=== PATIENT | female | born 1960 | race Caucasian/White ===

== ENCOUNTER 2018-03-09 13:42 | Inpatient (IN) | payer MEDICAID ==
[~2018-03-09] VITALS: Ht 152.4 cm; Wt 103.0 kg
[~2018-03-09 13:42] MED LIST: CIPR500T87 PO; DULO20CA45 PO; GABA800T PO; OXYC5TAB3 PO; POTA20TA14 PO
[2018-03-09] MEDS ORDERED: AMPICILLIN/SULBACTAM 1,500 MG in SODIUM CHLORIDE 0.9% 50 ML IV ONE (14:58)
[2018-03-09] MEDS ORDERED: ERYTHROMYCIN OPHTH 0.5%, 1GM RIGHTEYE ONE (15:00)
[2018-03-09 15:20] LABS: BASOPHILS # (AUTO) 0.02 x10^3/uL (0-0.1); BASOPHILS % (AUTO) 0 % (0-1); EOSINOPHILS # (AUTO) 0.14 x10^3/uL (0-0.4); EOSINOPHILS % (AUTO) 2 % (1-7); LYMPHOCYTES # (AUTO) 2.03 x10^3/uL (1-3.4); LYMPHOCYTES % (AUTO) 26 % (22-44); MD NO; MEAN CORPUSCULAR HEMOGLOBIN 29.9 pg (27.0-34.8); MEAN CORPUSCULAR VOLUME 88.2 fL (80-100); MEAN PLATELET VOLUME 7.5 fL (7.4-10.4); MONOCYTES # (AUTO) 0.71 x10^3/uL (0.2-0.8); MONOCYTES % (AUTO) 9 % (2-9); NEUTROPHILS # (AUTO) 4.84 x10^3/uL (1.8-6.8); NEUTROPHILS % (AUTO) 63 % (42-75); PLATELET COUNT 338 x10^3/uL (130-400); RED BLOOD COUNT 5.11 x10^6/uL (3.82-5.3); RED CELL DISTRIBUTION WIDTH 12.9 % (9.6-15.2)
[2018-03-09] MEDS ORDERED: HYDR25CA PO (15:27)
[2018-03-09] MEDS ORDERED: METO-93 PO (15:27)
[2018-03-09 15:34] LABS: ALBUMIN 3.8 g/dL (3.4-5.0); ANION GAP 5 mmol/L (5-15); CHLORIDE 105 mmol/L (98-107); CREATININE 0.66 mg/dL (0.55-1.02)
[2018-03-09] MEDS ORDERED: HYDROcodone/APAP 5/325 TABLET ONE (16:34)
[2018-03-09] MEDS ORDERED: HYDROcodone/APAP 5/325 TABLET PO ONE (17:00)
[2018-03-09 18:00] VITALS: BP 102/56
[2018-03-09] MEDS ORDERED: ONDANSETRON ODT 4 MG PO PRN (18:00)
[2018-03-09] MEDS ORDERED: hydrALAzine 20 MG/ML, 1ML IVPush PRN (18:00)
[2018-03-09] MEDS ORDERED: morphine SULFATE 10 MG/ML, 1ML IVPush PRN (18:00)
[2018-03-09] MEDS ORDERED: PROMETHAZINE 25 MG/ML, 1ML IM PRN (18:00)
[2018-03-09] MEDS ORDERED: GABAPENTIN 400 MG CAPSULE PO SCH (18:00)
[2018-03-09] MEDS ORDERED: ONDANSETRON 2MG/ML, 2ML IVPush PRN (18:00)
[2018-03-09] MEDS ORDERED: POLYETHYLENE GLYCOL 17 GM PACKET PO PRN (18:00)
[2018-03-09] MEDS ORDERED: ACETAMINOPHEN 325 MG TABLET PO PRN (18:00)
[2018-03-09 18:06] LABS: FREE T4 (FREE THYROXINE) 0.79 ng/dL (0.76-1.46); THYROID STIMULATING HORMONE 1.29 mIU/L (0.358-3.740)
[2018-03-09 18:11] LABS: HEMOGLOBIN A1C 5.7 % (4.2-6.3)
[2018-03-09 19:02] VITALS: BP 113/76
[2018-03-09 19:32] LABS: CULTURE INDICATED? YES; MICROSCOPIC INDICATED
[2018-03-09] MEDS ORDERED: HYDROXYZINE PAMOATE 50MG CAP PO SCH (21:00)
[2018-03-09] MEDS: AMPICILLIN/SULBACTAM 3 GM in SODIUM CHLORIDE 0.9% 100 ML IV SCH (21:05)
[2018-03-09] MEDS: DULOXETINE 30 MG CAPSULE.DR PO SCH (21:18)
[2018-03-09] MEDS: GABAPENTIN 400 MG CAPSULE PO SCH (21:18)
[2018-03-09] MEDS: METOPROLOL SUCCINATE 50 MG TAB.ER.24H PO SCH (21:18)
[2018-03-09] MEDS: HYDROXYZINE PAMOATE 25MG CAP PO SCH (21:22)
[2018-03-10 01:26] VITALS: BP 101/61
[2018-03-10] MEDS: AMPICILLIN/SULBACTAM 3 GM in SODIUM CHLORIDE 0.9% 100 ML IV SCH ×4 (02:53→21:23)
[2018-03-10 05:26] LABS: BASOPHILS # (AUTO) 0.04 x10^3/uL (0-0.1); BASOPHILS % (AUTO) 1 % (0-1); EOSINOPHILS # (AUTO) 0.23 x10^3/uL (0-0.4); EOSINOPHILS % (AUTO) 3 % (1-7); LYMPHOCYTES # (AUTO) 2.36 x10^3/uL (1-3.4); LYMPHOCYTES % (AUTO) 31 % (22-44); MD NO; MEAN CORPUSCULAR HEMOGLOBIN 29.8 pg (27.0-34.8); MEAN CORPUSCULAR HGB CONC 33.6 g/dL (32.4-35.8); MEAN CORPUSCULAR VOLUME 88.7 fL (80-100); MEAN PLATELET VOLUME 7.6 fL (7.4-10.4); MONOCYTES # (AUTO) 0.88 x10^3/uL (0.2-0.8); MONOCYTES % (AUTO) 12 % (2-9); NEUTROPHILS % (AUTO) 54 % (42-75); PLATELET COUNT 228 x10^3/uL (130-400); RED CELL DISTRIBUTION WIDTH 12.7 % (9.6-15.2)
[2018-03-10 05:42] LABS: ALBUMIN 3.3 g/dL (3.4-5.0); ANION GAP 7 mmol/L (5-15); CALCIUM 8.7 mg/dL (8.5-10.1); CHLORIDE 106 mmol/L (98-107)
[2018-03-10 05:46] LABS: ALANINE AMINOTRANSFERASE 23 U/L (12-78); ALKALINE PHOSPHATASE 77 U/L (45-117); BILIRUBIN,TOTAL 0.8 mg/dL (0.2-1.0); CHOL/HDL RATIO 5.6; CHOLESTEROL, TOTAL 192 mg/dL (140-239); CREATININE 0.65 mg/dL (0.55-1.02); HDL CHOL % 18 % (28-40); HDL CHOLESTEROL (DIRECT) 34 mg/dL (40-60); LDL CHOLESTEROL,CALCULATED 106 mg/dL (54-169); LDL/HDL RATIO 3.1 (0.5-3.0); TOTAL PROTEIN 6.5 g/dL (6.4-8.2); TRIGLYCERIDES 261 mg/dL (50-200); VLDL CHOLESTEROL 52 mg/dL (0-25)
[2018-03-10 07:01] VITALS: BP 107/65
[2018-03-10] MEDS ORDERED: METOPROLOL SUCCINATE 50 MG TAB.ER.24H PO SCH (09:00)
[2018-03-10] MEDS ORDERED: DULOXETINE 30 MG CAPSULE.DR PO SCH (09:00)
[2018-03-10] MEDS ORDERED: HYDROXYZINE PAMOATE 25MG CAP PO SCH (09:00)
[2018-03-10] MEDS ORDERED: OMNIPAQUE 350 MG/ML, 100ML BOTTLE ONE (12:57)
[2018-03-10] MEDS ORDERED: PHARMACOKINETIC CONSULTATION MC ONE (13:00)
[2018-03-10] MEDS ORDERED: VANCOMYCIN PER PHARMACY MC PRN (13:00)
[2018-03-10] MEDS ORDERED: PHARMACOKINETIC MONITORING MC PRN (13:00)
[2018-03-10] MEDS: VANCOMYCIN 1,800 MG in SODIUM CHLORIDE 0.9% 250 ML IV SCH (13:16)
[2018-03-10 14:45] VITALS: BP 124/67
[2018-03-10 18:59] VITALS: BP 107/65
[2018-03-10] MEDS: GABAPENTIN 400 MG CAPSULE PO SCH (20:13)
[2018-03-10] MEDS: DULOXETINE 30 MG CAPSULE.DR PO SCH (20:13)
[2018-03-10] MEDS: METOPROLOL SUCCINATE 50 MG TAB.ER.24H PO SCH (20:13)
[2018-03-10] MEDS: HYDROXYZINE PAMOATE 25MG CAP PO SCH (20:14)
[2018-03-10] MEDS: NEO/POLYMYX B/DEXA OPHTH OINT, 3.5GM OP SCH (22:06)
[2018-03-11] MEDS: AMPICILLIN/SULBACTAM 3 GM in SODIUM CHLORIDE 0.9% 100 ML IV SCH ×4 (03:05→22:26)
[2018-03-11 03:09] VITALS: BP 92/60
[2018-03-11 05:14] LABS: BASOPHILS # (AUTO) 0.03 x10^3/uL (0-0.1); BASOPHILS % (AUTO) 1 % (0-1); EOSINOPHILS # (AUTO) 0.17 x10^3/uL (0-0.4); EOSINOPHILS % (AUTO) 3 % (1-7); LYMPHOCYTES % (AUTO) 28 % (22-44); MD NO; MEAN CORPUSCULAR HEMOGLOBIN 30.3 pg (27.0-34.8); MEAN CORPUSCULAR VOLUME 89.1 fL (80-100); MEAN PLATELET VOLUME 7.8 fL (7.4-10.4); MONOCYTES # (AUTO) 0.65 x10^3/uL (0.2-0.8); MONOCYTES % (AUTO) 9 % (2-9); NEUTROPHILS # (AUTO) 4.12 x10^3/uL (1.8-6.8); NEUTROPHILS % (AUTO) 60 % (42-75); PLATELET COUNT 263 x10^3/uL (130-400); RED BLOOD COUNT 4.68 x10^6/uL (3.82-5.3); RED CELL DISTRIBUTION WIDTH 12.7 % (9.6-15.2)
[2018-03-11 05:15] LABS: CHLORIDE 107 mmol/L (98-107)
[2018-03-11 05:20] LABS: ALBUMIN 3.2 g/dL (3.4-5.0); ANION GAP 8 mmol/L (5-15); CALCIUM 8.3 mg/dL (8.5-10.1); CREATININE 0.79 mg/dL (0.55-1.02)
[2018-03-11] MEDS: NEO/POLYMYX B/DEXA OPHTH OINT, 3.5GM OP SCH ×4 (05:20→20:51)
[2018-03-11] MEDS: VANCOMYCIN 1,800 MG in SODIUM CHLORIDE 0.9% 250 ML IV SCH (08:06)
[2018-03-11 08:18] VITALS: BP 118/65
[2018-03-11] MEDS: OXYcodone/APAP 5/325MG TABLET PO PRN ×2 (10:17→17:26)
[2018-03-11 12:27] VITALS: BP 111/73
[2018-03-11 18:36] VITALS: BP 120/77
[2018-03-11] MEDS: METOPROLOL SUCCINATE 50 MG TAB.ER.24H PO SCH (20:51)
[2018-03-11] MEDS: GABAPENTIN 400 MG CAPSULE PO SCH (20:51)
[2018-03-11] MEDS: HYDROXYZINE PAMOATE 25MG CAP PO SCH (20:52)
[2018-03-11] MEDS: DULOXETINE 30 MG CAPSULE.DR PO SCH (20:52)
[2018-03-12] MEDS: VANCOMYCIN 1,800 MG in SODIUM CHLORIDE 0.9% 250 ML IV SCH ×2 (00:43→19:22)
[2018-03-12 01:32] VITALS: BP 112/64
[2018-03-12] MEDS: AMPICILLIN/SULBACTAM 3 GM in SODIUM CHLORIDE 0.9% 100 ML IV SCH ×4 (04:30→22:26)
[2018-03-12 05:28] LABS: ANION GAP 5 mmol/L (5-15); CALCIUM 8.5 mg/dL (8.5-10.1); CHLORIDE 110 mmol/L (98-107); CREATININE 0.55 mg/dL (0.55-1.02)
[2018-03-12 05:28] LABS: BASOPHILS # (AUTO) 0.03 x10^3/uL (0-0.1); BASOPHILS % (AUTO) 1 % (0-1); EOSINOPHILS % (AUTO) 4 % (1-7); LYMPHOCYTES # (AUTO) 1.86 x10^3/uL (1-3.4); LYMPHOCYTES % (AUTO) 33 % (22-44); MD NO; MEAN CORPUSCULAR HEMOGLOBIN 30.5 pg (27.0-34.8); MEAN CORPUSCULAR HGB CONC 34.5 g/dL (32.4-35.8); MEAN CORPUSCULAR VOLUME 88.4 fL (80-100); MEAN PLATELET VOLUME 7.9 fL (7.4-10.4); MONOCYTES # (AUTO) 0.57 x10^3/uL (0.2-0.8); MONOCYTES % (AUTO) 10 % (2-9); NEUTROPHILS % (AUTO) 53 % (42-75); PLATELET COUNT 228 x10^3/uL (130-400); RED BLOOD COUNT 4.13 x10^6/uL (3.82-5.3); RED CELL DISTRIBUTION WIDTH 12.6 % (9.6-15.2)
[2018-03-12] MEDS: NEO/POLYMYX B/DEXA OPHTH OINT, 3.5GM OP SCH ×4 (06:11→20:30)
[2018-03-12 06:38] VITALS: BP 121/68
[2018-03-12 14:00] VITALS: BP 121/68
[2018-03-12 17:23] VITALS: BP 120/77
[2018-03-12 18:43] VITALS: BP 124/73
[2018-03-12] MEDS: GABAPENTIN 400 MG CAPSULE PO SCH (20:29)
[2018-03-12] MEDS: METOPROLOL SUCCINATE 50 MG TAB.ER.24H PO SCH (20:29)
[2018-03-12] MEDS: HYDROXYZINE PAMOATE 25MG CAP PO SCH (20:29)
[2018-03-12] MEDS: DULOXETINE 30 MG CAPSULE.DR PO SCH (20:29)
[2018-03-12] MEDS: HEPARIN 5,000 UNITS/ML, 1ML SQ SCH (20:29)
[2018-03-13 00:09] VITALS: BP 113/68
[2018-03-13] MEDS: AMPICILLIN/SULBACTAM 3 GM in SODIUM CHLORIDE 0.9% 100 ML IV SCH ×4 (04:36→22:45)
[2018-03-13] MEDS: HEPARIN 5,000 UNITS/ML, 1ML SQ SCH ×3 (04:37→20:02)
[2018-03-13 06:11] LABS: ALBUMIN 3.1 g/dL (3.4-5.0); ANION GAP 6 mmol/L (5-15); CALCIUM 8.3 mg/dL (8.5-10.1); CHLORIDE 108 mmol/L (98-107); CREATININE 0.67 mg/dL (0.55-1.02)
[2018-03-13] MEDS: NEO/POLYMYX B/DEXA OPHTH OINT, 3.5GM OP SCH ×4 (06:21→20:02)
[2018-03-13] MEDS ORDERED: POTASSIUM CHLORIDE 20 MEQ TAB.ER.PRT PO ONE (07:00)
[2018-03-13 07:36] VITALS: BP 115/74
[2018-03-13 12:21] VITALS: BP 109/74
[2018-03-13] MEDS: VANCOMYCIN 1,800 MG in SODIUM CHLORIDE 0.9% 250 ML IV SCH (13:02)
[2018-03-13 19:55] VITALS: BP 120/68
[2018-03-13] MEDS: HYDROXYZINE PAMOATE 25MG CAP PO SCH (20:02)
[2018-03-13] MEDS: DULOXETINE 30 MG CAPSULE.DR PO SCH (20:02)
[2018-03-13] MEDS: METOPROLOL SUCCINATE 50 MG TAB.ER.24H PO SCH (20:02)
[2018-03-13] MEDS: GABAPENTIN 400 MG CAPSULE PO SCH (20:03)
[2018-03-14] MEDS: CEPHALEXIN 500 MG CAPSULE PO SCH ×2 (00:04→08:43)
[2018-03-14 03:24] VITALS: BP 112/62
[2018-03-14] MEDS ORDERED: VANCOMYCIN 2,000 MG in SODIUM CHLORIDE 0.9% 500 ML IV ONE (06:00)
[2018-03-14] MEDS: HEPARIN 5,000 UNITS/ML, 1ML SQ SCH ×2 (06:10→14:00)
[2018-03-14] MEDS: NEO/POLYMYX B/DEXA OPHTH OINT, 3.5GM OP SCH ×2 (06:11→12:04)
[2018-03-14 07:10] LABS: BASOPHILS # (AUTO) 0.02 x10^3/uL (0-0.1); BASOPHILS % (AUTO) 0 % (0-1); EOSINOPHILS # (AUTO) 0.15 x10^3/uL (0-0.4); EOSINOPHILS % (AUTO) 3 % (1-7); LYMPHOCYTES # (AUTO) 1.84 x10^3/uL (1-3.4); LYMPHOCYTES % (AUTO) 36 % (22-44); MD NO; MEAN CORPUSCULAR HEMOGLOBIN 29.6 pg (27.0-34.8); MEAN CORPUSCULAR HGB CONC 33.4 g/dL (32.4-35.8); MEAN CORPUSCULAR VOLUME 88.7 fL (80-100); MEAN PLATELET VOLUME 7.7 fL (7.4-10.4); MONOCYTES # (AUTO) 0.54 x10^3/uL (0.2-0.8); MONOCYTES % (AUTO) 11 % (2-9); NEUTROPHILS # (AUTO) 2.54 x10^3/uL (1.8-6.8); NEUTROPHILS % (AUTO) 50 % (42-75); PLATELET COUNT 241 x10^3/uL (130-400); RED BLOOD COUNT 4.27 x10^6/uL (3.82-5.3); RED CELL DISTRIBUTION WIDTH 12.9 % (9.6-15.2)
[2018-03-14 07:14] VITALS: BP 132/84
[2018-03-14 07:22] LABS: ANION GAP 4 mmol/L (5-15); CALCIUM 8.6 mg/dL (8.5-10.1); CHLORIDE 110 mmol/L (98-107)
[2018-03-14 07:23] LABS: CREATININE 0.68 mg/dL (0.55-1.02)
[2018-03-14] MEDS ORDERED: DOXYCYCLINE 100MG TABLET PO SCH (09:00)
[2018-03-14] MEDS ORDERED: CEPH-376 PO (10:59)
[2018-03-14] MEDS ORDERED: NEO/3.5O7 OP (10:59)
[2018-03-14] MEDS ORDERED: DOXY100T PO (10:59)
== END 2018-03-14 15:11 | disposition home or self-care (01) | DRG 603 ==
LOC: ED 15:06 → EDIP 16:48 → INTOOBSV 17:36 → OBSVTOIN 17:36 → 3NE 17:46
PROVIDERS: ADMIT Internal Medicine; ATTEND Internal Medicine
DX: L03.213 Periorbital cellulitis (principal); N39.0 Urinary tract infection, site not specified; R78.81 Bacteremia; E66.9 Obesity, unspecified; E78.1 Pure hyperglyceridemia; G57.90 Unspecified mononeuropathy of unspecified lower limb; I10 Essential (primary) hypertension; I73.9 Peripheral vascular disease, unspecified; J45.909 Unspecified asthma, uncomplicated; Z80.1 Family history of malignant neoplasm of trachea, bronchus and lung; Z90.49 Acquired absence of other specified parts of digestive tract
CPT/HCPCS: 36415; 70481; 80048; 80053; 80061; 80202; 81001; 82040; 83036; 83605; 83735; 84439; 84443; 85025; 87040; 87077; 87086; 87186; 93306; 96365; 96366; J0295; J1644; J3370; Q9967; G0378; J7050

== ENCOUNTER 2018-03-16 11:23 | Emergency (ER) | payer MEDICAID ==
[~2018-03-16] VITALS: Ht 152.4 cm; Wt 103.9 kg
[~2018-03-16 11:23] MED LIST changes: +CEPH-376 PO; +DOXY100T PO; +HYDR25CA PO; +METO-93 PO; +NEO/3.5O7 OP
[2018-03-16 11:29] VITALS: BP 135/85
== END 2018-03-16 12:45 | disposition home or self-care (01) ==
LOC: ED 12:00
DX: K21.0 Gastro-esophageal reflux disease with esophagitis (principal); I10 Essential (primary) hypertension; Z90.49 Acquired absence of other specified parts of digestive tract
CPT/HCPCS: 99283

== ENCOUNTER 2018-04-19 12:18 | Emergency (ER) | payer MEDICAID ==
[~2018-04-19] VITALS: Ht 152.4 cm; Wt 101.0 kg
[2018-04-19 12:33] VITALS: BP 123/71
[2018-04-19] MEDS ORDERED: CIPROFLOXACIN/HYDROCORTISONE EAR SUSP 0.2-1%, 10ML RIGHT EAR ONE (14:00)
== END 2018-04-19 14:17 | disposition home or self-care (01) ==
LOC: ED 14:11
DX: H60.501 Unspecified acute noninfective otitis externa, right ear (principal); K21.9 Gastro-esophageal reflux disease without esophagitis; G89.29 Other chronic pain; I10 Essential (primary) hypertension; J45.909 Unspecified asthma, uncomplicated; G62.9 Polyneuropathy, unspecified
CPT/HCPCS: 99283

== ENCOUNTER 2018-06-26 22:28 | Emergency (ER) | payer MEDICAID ==
[~2018-06-26] VITALS: Ht 152.4 cm; Wt 103.0 kg
[2018-06-26] MEDS ORDERED: DULO60CA7 PO (22:52)
[2018-06-26] MEDS ORDERED: ALBUTEROL/IPRATROPIUM 2.5MG/0.5MG, 3 ML NPPB ONE (23:00)
[2018-06-26] MEDS ORDERED: ALBUTEROL/IPRATROPIUM 2.5MG/0.5MG, 3 ML ONE ×2 (23:04→23:12)
[2018-06-26] MEDS ORDERED: FAMOTIDINE 20 MG TABLET ONE (23:51)
[2018-06-27 00:03] VITALS: BP 120/64
== END 2018-06-27 00:25 | disposition home or self-care (01) ==
LOC: ED 23:34
DX: J45.31 Mild persistent asthma with (acute) exacerbation (principal)
CPT/HCPCS: 71045; 94640; 99284; J7512; J7620; 99283

== ENCOUNTER 2018-10-22 12:55 | Emergency (ER) | payer MEDICAID ==
[~2018-10-22] VITALS: Ht 152.4 cm; Wt 100.0 kg
[~2018-10-22 12:55] MED LIST changes: +DULO60CA7 PO
[2018-10-22 12:59] VITALS: BP 160/87
[2018-10-22 13:57] LABS: BASOPHILS # (AUTO) 0.02 x10^3/uL (0-0.1); BASOPHILS % (AUTO) 0 % (0-1); EOSINOPHILS # (AUTO) 0.15 x10^3/uL (0-0.4); EOSINOPHILS % (AUTO) 2 % (1-7); LYMPHOCYTES # (AUTO) 1.49 x10^3/uL (1-3.4); LYMPHOCYTES % (AUTO) 21 % (22-44); MD NO; MEAN CORPUSCULAR HEMOGLOBIN 30.7 pg (27.0-34.8); MEAN CORPUSCULAR HGB CONC 33.9 g/dL (32.4-35.8); MEAN CORPUSCULAR VOLUME 90.5 fL (80-100); MEAN PLATELET VOLUME 7.3 fL (7.4-10.4); MONOCYTES # (AUTO) 0.55 x10^3/uL (0.2-0.8); MONOCYTES % (AUTO) 8 % (2-9); NEUTROPHILS # (AUTO) 4.93 x10^3/uL (1.8-6.8); NEUTROPHILS % (AUTO) 69 % (42-75); PLATELET COUNT 358 x10^3/uL (130-400); RED BLOOD COUNT 4.59 x10^6/uL (3.82-5.3); RED CELL DISTRIBUTION WIDTH 13.2 % (9.6-15.2)
[2018-10-22 14:04] LABS: ALBUMIN 3.5 g/dL (3.4-5.0); ANION GAP 6 mmol/L (5-15); CALCIUM 9.6 mg/dL (8.5-10.1); CHLORIDE 103 mmol/L (98-107); CREATININE 0.69 mg/dL (0.55-1.02)
[2018-10-22] MEDS ORDERED: BACITRACIN ZINC OINT 500U/GM, 0.9 GM ONE (14:16)
[2018-10-22] MEDS ORDERED: LIDOCAINE-MPF 1%, 5ML ONE (14:16)
--- NOTE | 2018-10-22 14:18 | NUR ---
ABNER CALLEJAS AT BEDSIDE PERFORMING I&D.
[2018-10-22] MEDS ORDERED: LIDOCAINE-MPF 1%, 5ML INFIL ONE (14:30)
[2018-10-22] MEDS ORDERED: DIPH,PERTUSS(ACELL),TET VAC/PF 0.5 ML IM-VACC ONE (15:00)
--- NOTE | 2018-10-22 15:17 | NUR ---
Patient/Caregiver given discharge instructions and they have confirmed that they understand the instructions. Patient ambulatory with steady gait.
== END 2018-10-22 15:18 | disposition home or self-care (01) ==
LOC: ED 15:00
DX: L03.031 Cellulitis of right toe (principal); I10 Essential (primary) hypertension; J45.909 Unspecified asthma, uncomplicated; M54.9 Dorsalgia, unspecified; G89.29 Other chronic pain; K21.9 Gastro-esophageal reflux disease without esophagitis; Z90.49 Acquired absence of other specified parts of digestive tract
CPT/HCPCS: 10060; 36415; 80048; 82040; 85025; 90471; 90715

== ENCOUNTER 2018-10-28 15:22 | Inpatient (IN) | payer MEDICAID ==
[~2018-10-28] VITALS: Ht 152.4 cm; Wt 103.0 kg
[2018-10-28 16:42] LABS: BASOPHILS # (AUTO) 0.04 x10^3/uL (0-0.1); BASOPHILS % (AUTO) 1 % (0-1); EOSINOPHILS # (AUTO) 0.29 x10^3/uL (0-0.4); EOSINOPHILS % (AUTO) 4 % (1-7); LYMPHOCYTES # (AUTO) 1.94 x10^3/uL (1-3.4); LYMPHOCYTES % (AUTO) 25 % (22-44); MD NO; MEAN CORPUSCULAR HEMOGLOBIN 30.9 pg (27.0-34.8); MEAN CORPUSCULAR HGB CONC 33.9 g/dL (32.4-35.8); MEAN CORPUSCULAR VOLUME 91.1 fL (80-100); MEAN PLATELET VOLUME 7.2 fL (7.4-10.4); MONOCYTES # (AUTO) 0.64 x10^3/uL (0.2-0.8); MONOCYTES % (AUTO) 8 % (2-9); NEUTROPHILS # (AUTO) 4.74 x10^3/uL (1.8-6.8); NEUTROPHILS % (AUTO) 62 % (42-75); PLATELET COUNT 334 x10^3/uL (130-400); RED BLOOD COUNT 4.63 x10^6/uL (3.82-5.3); RED CELL DISTRIBUTION WIDTH 13.1 % (9.6-15.2)
--- NOTE | 2018-10-28 16:50 | NUR ---
TENANT COORDINATOR: PT TO ED ROOM 30 FROM LOBBY IN NAD AT THIS TIME
--- NOTE | 2018-10-28 17:01 | NUR ---
ASSUMED CARE OF PT. PT C/O RIGHT MIDDLE TOE INFECTION NOT GETTING BETTER AFTER BEING ON ORAL ANTIBIOTICS FOR 6 DAYS. PT IN GOWN AND WARM BLANKET GIVEN. WAITING FOR FURTHER ORDERS.
[2018-10-28] MEDS ORDERED: SULF1TAB24 PO (17:06)
[2018-10-28] MEDS ORDERED: AMPICILLIN/SULBACTAM 3 GM in SODIUM CHLORIDE 0.9% 100 ML IV ONE (18:00)
[2018-10-28] MEDS ORDERED: CALCIUM PO (18:27)
[2018-10-28] MEDS ORDERED: VITAMIN D3 PO (18:27)
[2018-10-28] MEDS ORDERED: ACETAMINOPHEN 325 MG TABLET PO PRN (18:30)
[2018-10-28] MEDS ORDERED: ONDANSETRON 2MG/ML, 2ML IVPush PRN (18:30)
[2018-10-28] MEDS ORDERED: IBUPROFEN 600 MG TABLET PO PRN (18:30)
[2018-10-28] MEDS ORDERED: CAPTOPRIL 25 MG TABLET PO PRN (18:30)
[2018-10-28 18:45] LABS: HCT (SEDRATE) 42.2 % (34.6-47.8)
[2018-10-28] MEDS ORDERED: VANCOMYCIN PER PHARMACY MC PRN (19:30)
[2018-10-28 19:38] LABS: ANION GAP 6 mmol/L (5-15); CALCIUM 8.5 mg/dL (8.5-10.1); CHLORIDE 106 mmol/L (98-107); CREATININE 0.84 mg/dL (0.55-1.02)
[2018-10-28] MEDS ORDERED: PHARMACOKINETIC MONITORING MC PRN (20:00)
[2018-10-28] MEDS ORDERED: PHARMACOKINETIC CONSULTATION MC ONE (20:00)
[2018-10-28] MEDS: GABAPENTIN 400 MG CAPSULE PO SCH (20:14)
[2018-10-28] MEDS: AMPICILLIN/SULBACTAM 1,500 MG in SODIUM CHLORIDE 0.9% 50 ML IV SCH (20:14)
[2018-10-28] MEDS: ENOXAPARIN 40 MG/0.4 ML SQ SCH (20:14)
[2018-10-28 20:39] VITALS: BP 132/84
[2018-10-28] MEDS: VANCOMYCIN 1,300 MG in SODIUM CHLORIDE 0.9% 250 ML IV SCH (22:07)
[2018-10-29 01:21] VITALS: BP 132/84
[2018-10-29] MEDS: AMPICILLIN/SULBACTAM 1,500 MG in SODIUM CHLORIDE 0.9% 50 ML IV SCH ×4 (01:57→19:40)
[2018-10-29 02:02] VITALS: BP 122/80
[2018-10-29 05:46] LABS: BASOPHILS # (AUTO) 0.04 x10^3/uL (0-0.1); BASOPHILS % (AUTO) 1 % (0-1); EOSINOPHILS # (AUTO) 0.26 x10^3/uL (0-0.4); EOSINOPHILS % (AUTO) 4 % (1-7); LYMPHOCYTES # (AUTO) 2.38 x10^3/uL (1-3.4); LYMPHOCYTES % (AUTO) 38 % (22-44); MD NO; MEAN CORPUSCULAR HEMOGLOBIN 30.4 pg (27.0-34.8); MEAN CORPUSCULAR HGB CONC 33.5 g/dL (32.4-35.8); MEAN CORPUSCULAR VOLUME 90.5 fL (80-100); MEAN PLATELET VOLUME 7.3 fL (7.4-10.4); MONOCYTES # (AUTO) 0.55 x10^3/uL (0.2-0.8); MONOCYTES % (AUTO) 9 % (2-9); NEUTROPHILS # (AUTO) 3.06 x10^3/uL (1.8-6.8); NEUTROPHILS % (AUTO) 49 % (42-75); PLATELET COUNT 295 x10^3/uL (130-400); RED BLOOD COUNT 4.26 x10^6/uL (3.82-5.3)
[2018-10-29 05:50] LABS: ANION GAP 6 mmol/L (5-15); CALCIUM 8.3 mg/dL (8.5-10.1); CHLORIDE 108 mmol/L (98-107)
[2018-10-29 05:51] LABS: CREATININE 0.71 mg/dL (0.55-1.02)
[2018-10-29 08:43] VITALS: BP 129/82
[2018-10-29] MEDS: DULOXETINE 30 MG CAPSULE.DR PO SCH (09:00)
[2018-10-29] MEDS: HYDROXYZINE PAMOATE 25MG CAP PO SCH (09:04)
[2018-10-29] MEDS: METOPROLOL SUCCINATE 50 MG TAB.ER.24H PO SCH (09:05)
[2018-10-29] MEDS: VANCOMYCIN 1,300 MG in SODIUM CHLORIDE 0.9% 250 ML IV SCH ×2 (10:40→22:32)
[2018-10-29 15:52] VITALS: BP 106/70
[2018-10-29] MEDS ORDERED: GADOBUTROL 10 MMOL/10 ML PFS ONE (16:12)
[2018-10-29 19:34] VITALS: BP 115/74
[2018-10-29] MEDS: ENOXAPARIN 40 MG/0.4 ML SQ SCH (19:40)
[2018-10-29] MEDS: GABAPENTIN 400 MG CAPSULE PO SCH (19:40)
[2018-10-30 01:26] VITALS: BP 118/66
[2018-10-30] MEDS: AMPICILLIN/SULBACTAM 1,500 MG in SODIUM CHLORIDE 0.9% 50 ML IV SCH ×2 (02:04→08:29)
[2018-10-30 05:56] LABS: ANION GAP 5 mmol/L (5-15); CALCIUM 8.2 mg/dL (8.5-10.1); CHLORIDE 110 mmol/L (98-107); CREATININE 0.63 mg/dL (0.55-1.02)
[2018-10-30 06:01] LABS: BASOPHILS # (AUTO) 0.03 x10^3/uL (0-0.1); BASOPHILS % (AUTO) 1 % (0-1); EOSINOPHILS # (AUTO) 0.28 x10^3/uL (0-0.4); EOSINOPHILS % (AUTO) 6 % (1-7); LYMPHOCYTES # (AUTO) 2.23 x10^3/uL (1-3.4); LYMPHOCYTES % (AUTO) 44 % (22-44); MD NO; MEAN CORPUSCULAR HEMOGLOBIN 30.3 pg (27.0-34.8); MEAN CORPUSCULAR VOLUME 91.8 fL (80-100); MEAN PLATELET VOLUME 7.2 fL (7.4-10.4); MONOCYTES # (AUTO) 0.44 x10^3/uL (0.2-0.8); MONOCYTES % (AUTO) 9 % (2-9); NEUTROPHILS # (AUTO) 2.06 x10^3/uL (1.8-6.8); NEUTROPHILS % (AUTO) 41 % (42-75); PLATELET COUNT 254 x10^3/uL (130-400); RED BLOOD COUNT 4.13 x10^6/uL (3.82-5.3); RED CELL DISTRIBUTION WIDTH 13.5 % (9.6-15.2)
[2018-10-30] MEDS: METOPROLOL SUCCINATE 50 MG TAB.ER.24H PO SCH (08:30)
[2018-10-30] MEDS: DULOXETINE 30 MG CAPSULE.DR PO SCH (08:30)
[2018-10-30] MEDS: HYDROXYZINE PAMOATE 25MG CAP PO SCH (08:31)
[2018-10-30 09:53] VITALS: BP 138/78
[2018-10-30] MEDS: VANCOMYCIN 1,300 MG in SODIUM CHLORIDE 0.9% 250 ML IV SCH (10:09)
[2018-10-30] MEDS ORDERED: AMOX1TAB64 PO (11:08)
[2018-10-30] MEDS ORDERED: DOXY100T51 PO (11:11)
== END 2018-10-30 12:44 | disposition home or self-care (01) | DRG 603 ==
LOC: ED 17:40 → EDIP 17:59 → 3NE 19:05 → DCLOUNGE 10-30 12:25
PROVIDERS: ADMIT Internal Medicine; ATTEND Internal Medicine
DX: L03.031 Cellulitis of right toe (principal); J45.909 Unspecified asthma, uncomplicated; I10 Essential (primary) hypertension; G60.9 Hereditary and idiopathic neuropathy, unspecified; E66.9 Obesity, unspecified; Z90.49 Acquired absence of other specified parts of digestive tract; Z80.1 Family history of malignant neoplasm of trachea, bronchus and lung
CPT/HCPCS: 36415; 80048; 80202; 85025; 85651; 87081; 96365; A9585; G0378; J0295; J1650; J3370; J7050

== ENCOUNTER 2018-11-20 10:21 | Emergency (ER) | payer MEDICAID ==
[~2018-11-20] VITALS: Ht 152.4 cm; Wt 99.0 kg
[~2018-11-20 10:21] MED LIST changes: +AMOX1TAB64 PO; +CALCIUM PO; +DOXY100T51 PO; +SULF1TAB24 PO; +VITAMIN D3 PO
[2018-11-20] MEDS ORDERED: ARIP5TAB13 PO (10:48)
[2018-11-20] MEDS ORDERED: METHOCARBAMOL 750 MG TABLET ONE (10:53)
[2018-11-20] MEDS ORDERED: HYDROcodone/APAP 5/325 TABLET ONE (10:53)
[2018-11-20] MEDS ORDERED: METHOCARBAMOL 750 MG TABLET PO ONE (11:00)
[2018-11-20] MEDS ORDERED: HYDROcodone/APAP 5/325 TABLET PO ONE (11:00)
[2018-11-20 11:53] VITALS: BP 129/72
== END 2018-11-20 11:57 | disposition home or self-care (01) ==
LOC: ED 11:36
DX: M75.31 Calcific tendinitis of right shoulder (principal); J45.909 Unspecified asthma, uncomplicated; Z90.49 Acquired absence of other specified parts of digestive tract; Z87.891 Personal history of nicotine dependence
CPT/HCPCS: 99283

== ENCOUNTER 2019-04-16 16:01 | Emergency (ER) | payer MEDICAID ==
[~2019-04-16] VITALS: Ht 152.4 cm; Wt 104.1 kg
[2019-04-16 16:19] VITALS: BP 138/52
== END 2019-04-16 17:02 | disposition home or self-care (01) ==
LOC: ED 16:53
DX: H60.502 Unspecified acute noninfective otitis externa, left ear (principal); Z87.891 Personal history of nicotine dependence; K21.9 Gastro-esophageal reflux disease without esophagitis; M54.9 Dorsalgia, unspecified; G89.29 Other chronic pain; J45.909 Unspecified asthma, uncomplicated; Z90.49 Acquired absence of other specified parts of digestive tract
CPT/HCPCS: 99283

== ENCOUNTER 2019-06-23 12:32 | Inpatient (IN) | payer MEDICAID ==
[~2019-06-23] VITALS: Ht 152.4 cm; Wt 111.9 kg
[~2019-06-23 12:32] MED LIST changes: +ARIP5TAB13 PO
--- NOTE | 2019-06-23 13:26 | NUR ---
REPORT RECEIVED FROM CESAR BETANCUR.
--- NOTE | 2019-06-23 13:26 | NUR ---
REPORT GIVEN TO SOFIA JOYNER TRANSFERRED TO [facility] VIA .
[2019-06-23] MEDS ORDERED: CEFTRIAXONE PMX 1GM/50ML 50 ML ONE (13:28)
[2019-06-23] MEDS ORDERED: ACETAMINOPHEN 325 MG TABLET ONE (13:28)
[2019-06-23] MEDS ORDERED: ACETAMINOPHEN 325 MG TABLET PO ONE (13:30)
[2019-06-23] MEDS ORDERED: SODIUM CHLORIDE FLUSH 10ML SYR IVF ONE (13:30)
[2019-06-23] MEDS ORDERED: CEFTRIAXONE PMX 1GM/50ML 50 ML IVPB ONE (13:30)
--- NOTE | 2019-06-23 13:44 | NUR ---
PT MEDICATED PER EMAR. PT TOLERATED WELL. ABX INFUSING AFTER BLOOD CULTURE DONE X 2 TIMES. PT TOLERATED WELL.
[2019-06-23 13:49] LABS: BASOPHILS # (AUTO) 0.02 x10^3/uL (0-0.1); BASOPHILS % (AUTO) 0 % (0-1); EOSINOPHILS # (AUTO) 0.11 x10^3/uL (0-0.4); EOSINOPHILS % (AUTO) 1 % (1-7); LYMPHOCYTES # (AUTO) 1.27 x10^3/uL (1-3.4); LYMPHOCYTES % (AUTO) 10 % (22-44); MD NO; MEAN CORPUSCULAR HEMOGLOBIN 30.1 pg (27.0-34.8); MEAN CORPUSCULAR VOLUME 91.1 fL (80-100); MEAN PLATELET VOLUME 7.5 fL (7.4-10.4); MONOCYTES # (AUTO) 0.91 x10^3/uL (0.2-0.8); MONOCYTES % (AUTO) 7 % (2-9); NEUTROPHILS # (AUTO) 9.97 x10^3/uL (1.8-6.8); NEUTROPHILS % (AUTO) 81 % (42-75); PLATELET COUNT 317 x10^3/uL (130-400); RED BLOOD COUNT 4.47 x10^6/uL (3.82-5.3); RED CELL DISTRIBUTION WIDTH 13.7 % (9.6-15.2)
[2019-06-23 14:00] LABS: ALBUMIN 3.2 g/dL (3.4-5.0); ANION GAP 10 mmol/L (5-15); CALCIUM 8.4 mg/dL (8.5-10.1); CHLORIDE 107 mmol/L (98-107); CREATININE 0.88 mg/dL (0.55-1.02)
[2019-06-23] MEDS ORDERED: SODIUM CHLORIDE FLUSH 10ML SYR IVF PRN (15:00)
--- NOTE | 2019-06-23 15:09 | NUR ---
report given to rayshawn beckett. all questions answered.
[2019-06-23] MEDS ORDERED: VANCOMYCIN PER PHARMACY MC PRN (15:30)
[2019-06-23] MEDS ORDERED: POLYETHYLENE GLYCOL 17 GM PACKET PO PRN (15:30)
[2019-06-23] MEDS ORDERED: LABETALOL 5MG/ML, 20ML IVPush PRN (15:30)
[2019-06-23] MEDS ORDERED: ONDANSETRON ODT 4 MG PO PRN (15:30)
[2019-06-23] MEDS ORDERED: TRAZODONE 50MG TABLET PO PRN (15:30)
[2019-06-23] MEDS ORDERED: DOCUSATE 100 MG CAPSULE PO PRN (15:30)
[2019-06-23] MEDS ORDERED: KETOROLAC 30 MG/1 ML IV PRN (15:30)
[2019-06-23] MEDS ORDERED: BISACODYL 10 MG SUPP PR PRN (15:30)
[2019-06-23] MEDS ORDERED: ONDANSETRON 2MG/ML, 2ML IVPush PRN (15:30)
[2019-06-23] MEDS ORDERED: ENALAPRILAT 1.25 MG/ML, 2ML IVPush PRN (15:30)
[2019-06-23] MEDS ORDERED: CALC500T11 PO (15:48)
[2019-06-23] MEDS ORDERED: DULO60CA56 PO (15:48)
[2019-06-23] MEDS ORDERED: AMIT25TA PO (15:48)
[2019-06-23] MEDS ORDERED: ARIP10TA15 PO (15:48)
[2019-06-23 16:00] VITALS: BP 106/50
[2019-06-23] MEDS ORDERED: PHARMACOKINETIC CONSULTATION MC ONE (16:00)
[2019-06-23] MEDS ORDERED: PHARMACOKINETIC MONITORING MC PRN (16:00)
[2019-06-23] MEDS ORDERED: HYDROXYZINE PAMOATE 25MG CAP PO PRN (16:00)
[2019-06-23 16:45] LABS: HCT (SEDRATE) 40.7 % (34.6-47.8)
[2019-06-23] MEDS: LACTATED RINGERS 1,000 ML IV SCH (16:46)
[2019-06-23] MEDS: ACETAMINOPHEN 325 MG TABLET PO PRN (17:50)
[2019-06-23] MEDS: AMPICILLIN/SULBACTAM 3 GM in SODIUM CHLORIDE 0.9% 100 ML IV SCH (17:51)
[2019-06-23] MEDS: VANCOMYCIN 2,100 MG in SODIUM CHLORIDE 0.9% 500 ML IV SCH (18:41)
[2019-06-23 20:07] VITALS: BP 115/76
[2019-06-23] MEDS: ARIPIPRAZOLE 10 MG TABLET PO SCH (20:39)
[2019-06-23] MEDS: AMITRIPTYLINE 25 MG TABLET PO SCH (20:39)
[2019-06-23] MEDS: DULOXETINE 30 MG CAPSULE.DR PO SCH (20:39)
[2019-06-23] MEDS: GABAPENTIN 400 MG CAPSULE PO SCH (20:40)
[2019-06-23] MEDS ORDERED: ARIPIPRAZOLE 5 MG TABLET PO SCH (21:00)
[2019-06-23] MEDS ORDERED: DULOXETINE 30 MG CAPSULE.DR PO SCH (21:00)
[2019-06-23] MEDS: HYDROcodone/APAP 5/325 TABLET PO PRN (22:24)
[2019-06-24] MEDS: AMPICILLIN/SULBACTAM 3 GM in SODIUM CHLORIDE 0.9% 100 ML IV SCH ×4 (00:11→21:04)
[2019-06-24 02:35] VITALS: BP 109/62
[2019-06-24] MEDS: LACTATED RINGERS 1,000 ML IV SCH (02:46)
[2019-06-24] MEDS: HYDROcodone/APAP 5/325 TABLET PO PRN ×4 (02:46→20:57)
[2019-06-24 04:45] LABS: BASOPHILS # (AUTO) 0.01 x10^3/uL (0-0.1); BASOPHILS % (AUTO) 0 % (0-1); EOSINOPHILS # (AUTO) 0.12 x10^3/uL (0-0.4); EOSINOPHILS % (AUTO) 2 % (1-7); LYMPHOCYTES # (AUTO) 0.98 x10^3/uL (1-3.4); LYMPHOCYTES % (AUTO) 12 % (22-44); MD NO; MEAN CORPUSCULAR HEMOGLOBIN 30.1 pg (27.0-34.8); MEAN CORPUSCULAR HGB CONC 33.1 g/dL (32.4-35.8); MEAN CORPUSCULAR VOLUME 90.7 fL (80-100); MEAN PLATELET VOLUME 7.4 fL (7.4-10.4); MONOCYTES # (AUTO) 0.72 x10^3/uL (0.2-0.8); MONOCYTES % (AUTO) 9 % (2-9); NEUTROPHILS # (AUTO) 6.43 x10^3/uL (1.8-6.8); NEUTROPHILS % (AUTO) 78 % (42-75); PLATELET COUNT 246 x10^3/uL (130-400); RED BLOOD COUNT 3.81 x10^6/uL (3.82-5.3); RED CELL DISTRIBUTION WIDTH 13.9 % (9.6-15.2)
[2019-06-24 04:55] LABS: ANION GAP 6 mmol/L (5-15); CALCIUM 8.1 mg/dL (8.5-10.1); CHLORIDE 107 mmol/L (98-107); CREATININE 0.61 mg/dL (0.55-1.02)
[2019-06-24] MEDS: DULOXETINE 30 MG CAPSULE.DR PO SCH ×2 (08:15→20:59)
[2019-06-24] MEDS: METOPROLOL SUCCINATE 50 MG TAB.ER.24H PO SCH (08:16)
[2019-06-24] MEDS: CALCIUM CARBONATE 500 MG TABLET PO SCH (08:17)
[2019-06-24] MEDS ORDERED: GADOTERATE 10 MMOL/20 ML SYR ONE (10:34)
[2019-06-24] MEDS: VANCOMYCIN 2,100 MG in SODIUM CHLORIDE 0.9% 500 ML IV SCH (10:51)
[2019-06-24 12:29] VITALS: BP 123/63
[2019-06-24 16:30] VITALS: BP 135/82
[2019-06-24 19:50] VITALS: BP 119/82
[2019-06-24] MEDS: AMITRIPTYLINE 25 MG TABLET PO SCH (20:57)
[2019-06-24] MEDS: ARIPIPRAZOLE 10 MG TABLET PO SCH (20:57)
[2019-06-24] MEDS: GABAPENTIN 400 MG CAPSULE PO SCH (20:58)
[2019-06-25 02:10] VITALS: BP 115/76
[2019-06-25] MEDS: AMPICILLIN/SULBACTAM 3 GM in SODIUM CHLORIDE 0.9% 100 ML IV SCH ×4 (02:32→20:12)
[2019-06-25] MEDS: VANCOMYCIN 2,100 MG in SODIUM CHLORIDE 0.9% 500 ML IV SCH ×2 (04:35→23:23)
[2019-06-25 07:09] LABS: BASOPHILS # (AUTO) 0.01 x10^3/uL (0-0.1); BASOPHILS % (AUTO) 0 % (0-1); EOSINOPHILS # (AUTO) 0.12 x10^3/uL (0-0.4); EOSINOPHILS % (AUTO) 2 % (1-7); LYMPHOCYTES # (AUTO) 1.11 x10^3/uL (1-3.4); LYMPHOCYTES % (AUTO) 17 % (22-44); MD NO; MEAN CORPUSCULAR HEMOGLOBIN 29.8 pg (27.0-34.8); MEAN CORPUSCULAR HGB CONC 32.7 g/dL (32.4-35.8); MEAN CORPUSCULAR VOLUME 91.1 fL (80-100); MEAN PLATELET VOLUME 6.9 fL (7.4-10.4); MONOCYTES # (AUTO) 0.67 x10^3/uL (0.2-0.8); MONOCYTES % (AUTO) 10 % (2-9); NEUTROPHILS # (AUTO) 4.57 x10^3/uL (1.8-6.8); NEUTROPHILS % (AUTO) 71 % (42-75); PLATELET COUNT 267 x10^3/uL (130-400); RED BLOOD COUNT 3.87 x10^6/uL (3.82-5.3); RED CELL DISTRIBUTION WIDTH 14.1 % (9.6-15.2)
[2019-06-25] MEDS: ACETAMINOPHEN 325 MG TABLET PO PRN (07:13)
[2019-06-25 07:16] LABS: ALANINE AMINOTRANSFERASE 18 U/L (12-78); ALBUMIN 2.7 g/dL (3.4-5.0); ANION GAP 5 mmol/L (5-15); CALCIUM 8.6 mg/dL (8.5-10.1); CHLORIDE 108 mmol/L (98-107)
[2019-06-25 07:19] LABS: ALKALINE PHOSPHATASE 101 U/L (45-117); BILIRUBIN,TOTAL 0.7 mg/dL (0.2-1.0); CREATININE 0.59 mg/dL (0.55-1.02); TOTAL PROTEIN 6.7 g/dL (6.4-8.2)
[2019-06-25 07:48] VITALS: BP 120/87
[2019-06-25] MEDS: METOPROLOL SUCCINATE 50 MG TAB.ER.24H PO SCH (08:51)
[2019-06-25] MEDS: CALCIUM CARBONATE 500 MG TABLET PO SCH (09:00)
[2019-06-25] MEDS: DULOXETINE 30 MG CAPSULE.DR PO SCH ×2 (09:00→20:11)
[2019-06-25] MEDS: HYDROcodone/APAP 5/325 TABLET PO PRN ×2 (12:17→17:49)
[2019-06-25 15:57] VITALS: BP 142/70
[2019-06-25] MEDS: AMITRIPTYLINE 25 MG TABLET PO SCH (20:11)
[2019-06-25] MEDS: ARIPIPRAZOLE 10 MG TABLET PO SCH (20:12)
[2019-06-25] MEDS: GABAPENTIN 400 MG CAPSULE PO SCH (20:12)
[2019-06-25 20:15] VITALS: BP 128/73
[2019-06-26] MEDS: HYDROcodone/APAP 5/325 TABLET PO PRN ×2 (01:39→10:26)
[2019-06-26 02:00] VITALS: BP 125/76
[2019-06-26] MEDS: AMPICILLIN/SULBACTAM 3 GM in SODIUM CHLORIDE 0.9% 100 ML IV SCH ×2 (03:00→09:37)
[2019-06-26 07:08] LABS: BASOPHILS # (AUTO) 0.02 x10^3/uL (0-0.1); BASOPHILS % (AUTO) 0 % (0-1); EOSINOPHILS # (AUTO) 0.18 x10^3/uL (0-0.4); EOSINOPHILS % (AUTO) 3 % (1-7); LYMPHOCYTES # (AUTO) 1.23 x10^3/uL (1-3.4); LYMPHOCYTES % (AUTO) 21 % (22-44); MD NO; MEAN CORPUSCULAR HEMOGLOBIN 29.8 pg (27.0-34.8); MEAN CORPUSCULAR HGB CONC 32.9 g/dL (32.4-35.8); MEAN CORPUSCULAR VOLUME 90.5 fL (80-100); MEAN PLATELET VOLUME 6.8 fL (7.4-10.4); MONOCYTES # (AUTO) 0.56 x10^3/uL (0.2-0.8); MONOCYTES % (AUTO) 10 % (2-9); NEUTROPHILS # (AUTO) 3.84 x10^3/uL (1.8-6.8); NEUTROPHILS % (AUTO) 66 % (42-75); PLATELET COUNT 307 x10^3/uL (130-400); RED BLOOD COUNT 3.85 x10^6/uL (3.82-5.3); RED CELL DISTRIBUTION WIDTH 13.7 % (9.6-15.2)
[2019-06-26 07:15] LABS: ALANINE AMINOTRANSFERASE 22 U/L (12-78); ALBUMIN 2.6 g/dL (3.4-5.0); CALCIUM 8.3 mg/dL (8.5-10.1); CREATININE 0.55 mg/dL (0.55-1.02)
[2019-06-26 07:18] LABS: ALKALINE PHOSPHATASE 99 U/L (45-117); BILIRUBIN,TOTAL 0.4 mg/dL (0.2-1.0); TOTAL PROTEIN 6.5 g/dL (6.4-8.2)
[2019-06-26 07:19] VITALS: BP 126/78
[2019-06-26 07:25] LABS: ANION GAP 4 mmol/L (5-15); CHLORIDE 109 mmol/L (98-107)
[2019-06-26] MEDS: CALCIUM CARBONATE 500 MG TABLET PO SCH (09:00)
[2019-06-26] MEDS: DULOXETINE 30 MG CAPSULE.DR PO SCH (09:37)
[2019-06-26] MEDS: METOPROLOL SUCCINATE 50 MG TAB.ER.24H PO SCH (09:38)
[2019-06-26] MEDS ORDERED: SULFAMETH./TRIMETHOPRIM DS 800MG/160MG TABLET PO SCH (11:00)
[2019-06-26 12:25] VITALS: BP 115/67
[2019-06-26] MEDS ORDERED: PHARMACOKINETIC CONSULTATION MC ONE (12:30)
[2019-06-26] MEDS ORDERED: VANCOMYCIN PER PHARMACY MC PRN (12:30)
[2019-06-26] MEDS ORDERED: PHARMACOKINETIC MONITORING MC PRN (12:30)
[2019-06-26] MEDS: CHOLECALCIFEROL 5,000u TAB PO SCH (13:30)
[2019-06-26] MEDS ORDERED: GADOTERATE 10 MMOL/20 ML SYR ONE (15:33)
[2019-06-26] MEDS: VANCOMYCIN 2,100 MG in SODIUM CHLORIDE 0.9% 500 ML IV SCH (17:06)
[2019-06-26] MEDS ORDERED: VANCOMYCIN 2,100 MG in SODIUM CHLORIDE 0.9% 500 ML IV SCH (17:30)
[2019-06-26] MEDS ORDERED: MIDAZOLAM 1 MG/ML, 2ML ONE (19:36)
[2019-06-26] MEDS ORDERED: SUCCINYLCHOLINE 20 MG/ML, 10ML ONE (19:36)
[2019-06-26] MEDS ORDERED: FENTANYL PF 250 MCG/5ML ONE (19:36)
[2019-06-26] MEDS ORDERED: PROPOFOL 10 MG/ML, 20ML ONE (19:36)
[2019-06-26] MEDS ORDERED: ONDANSETRON 2MG/ML, 2ML ONE (19:50)
[2019-06-26] MEDS ORDERED: DEXAMETHASONE 4 MG/ML, 1ML ONE (19:50)
[2019-06-26] MEDS ORDERED: FENTANYL PF 100 MCG/2ML IV PRN (20:00)
[2019-06-26] MEDS ORDERED: LABETALOL 5 MG/ML SYR. (IV ONLY) IV PRN (20:00)
[2019-06-26] MEDS ORDERED: hydrALAzine 20 MG/ML, 1ML IV PRN (20:00)
[2019-06-26] MEDS ORDERED: MEPERIDINE/PF 25MG/ML,1ML IVPush PRN (20:00)
[2019-06-26] MEDS ORDERED: ONDANSETRON 2MG/ML, 2ML IV PRN (20:00)
[2019-06-26] MEDS ORDERED: ACETAMINOPHEN 325 MG TABLET PO PRN (20:00)
[2019-06-26] MEDS ORDERED: OXYcodone 5 MG/5 ML ORAL.SOL UDC PO PRN (20:00)
[2019-06-26] MEDS ORDERED: PROMETHAZINE 25 MG/ML, 1ML IV PRN (20:00)
[2019-06-26] MEDS ORDERED: METOPROLOL 1 MG/ML, 5ML ONE (20:53)
[2019-06-26] MEDS ORDERED: HYDROmorphone 2 MG/ML, 1ML ONE (21:05)
[2019-06-26] MEDS: HYDROmorphone 2 MG/ML, 1ML IVPush PRN ×3 (21:06→21:42)
[2019-06-26] MEDS ORDERED: LABETALOL 5 MG/ML SYR. (IV ONLY) IVPush PRN (21:30)
[2019-06-26] MEDS ORDERED: OXYcodone/APAP 5/325MG TABLET PO PRN (23:00)
[2019-06-26] MEDS ORDERED: HYDROmorphone 2 MG/ML, 1ML IVPush PRN (23:00)
[2019-06-27] MEDS: GABAPENTIN 400 MG CAPSULE PO SCH ×2 (00:13→21:15)
[2019-06-27] MEDS: DULOXETINE 30 MG CAPSULE.DR PO SCH ×2 (00:14→21:15)
[2019-06-27] MEDS: AMITRIPTYLINE 25 MG TABLET PO SCH ×2 (00:14→21:15)
[2019-06-27] MEDS: HYDROcodone/APAP 5/325 TABLET PO PRN ×4 (00:15→23:16)
[2019-06-27] MEDS: ARIPIPRAZOLE 10 MG TABLET PO SCH ×2 (00:16→21:14)
[2019-06-27 05:23] LABS: CREATININE 0.66 mg/dL (0.55-1.02)
[2019-06-27 07:15] VITALS: BP 119/79
[2019-06-27] MEDS: CALCIUM CARBONATE 500 MG TABLET PO SCH (09:43)
[2019-06-27] MEDS: CHOLECALCIFEROL 5,000u TAB PO SCH (09:43)
[2019-06-27] MEDS: METOPROLOL SUCCINATE 50 MG TAB.ER.24H PO SCH (09:43)
[2019-06-27] MEDS: VANCOMYCIN 2,100 MG in SODIUM CHLORIDE 0.9% 500 ML IV SCH (11:43)
[2019-06-27 14:01] VITALS: BP 117/67
[2019-06-27 19:49] VITALS: BP 117/75
[2019-06-28 02:21] VITALS: BP 123/74
[2019-06-28] MEDS: HYDROcodone/APAP 5/325 TABLET PO PRN ×3 (05:13→19:48)
[2019-06-28] MEDS: VANCOMYCIN 2,100 MG in SODIUM CHLORIDE 0.9% 500 ML IV SCH ×2 (05:13→22:54)
[2019-06-28 07:55] VITALS: BP 125/67
[2019-06-28] MEDS: CHOLECALCIFEROL 5,000u TAB PO SCH (09:10)
[2019-06-28] MEDS: METOPROLOL SUCCINATE 50 MG TAB.ER.24H PO SCH (09:10)
[2019-06-28] MEDS: CALCIUM CARBONATE 500 MG TABLET PO SCH (09:10)
[2019-06-28 11:55] LABS: BASOPHILS # (AUTO) 0.04 x10^3/uL (0-0.1); BASOPHILS % (AUTO) 1 % (0-1); EOSINOPHILS # (AUTO) 0.21 x10^3/uL (0-0.4); EOSINOPHILS % (AUTO) 3 % (1-7); LYMPHOCYTES # (AUTO) 2.14 x10^3/uL (1-3.4); LYMPHOCYTES % (AUTO) 27 % (22-44); MD NO; MEAN CORPUSCULAR HEMOGLOBIN 30.2 pg (27.0-34.8); MEAN CORPUSCULAR HGB CONC 32.6 g/dL (32.4-35.8); MEAN CORPUSCULAR VOLUME 92.5 fL (80-100); MEAN PLATELET VOLUME 6.7 fL (7.4-10.4); MONOCYTES # (AUTO) 0.62 x10^3/uL (0.2-0.8); MONOCYTES % (AUTO) 8 % (2-9); NEUTROPHILS % (AUTO) 63 % (42-75); PLATELET COUNT 380 x10^3/uL (130-400); RED CELL DISTRIBUTION WIDTH 13.3 % (9.6-15.2)
[2019-06-28 12:07] LABS: ANION GAP 3 mmol/L (5-15); CALCIUM 8.6 mg/dL (8.5-10.1); CHLORIDE 104 mmol/L (98-107)
[2019-06-28 12:08] LABS: CREATININE 0.61 mg/dL (0.55-1.02)
[2019-06-28 14:45] VITALS: BP 141/81
[2019-06-28 19:12] VITALS: BP 129/84
[2019-06-28] MEDS: ARIPIPRAZOLE 10 MG TABLET PO SCH (20:21)
[2019-06-28] MEDS: AMITRIPTYLINE 25 MG TABLET PO SCH (20:22)
[2019-06-28] MEDS: DULOXETINE 30 MG CAPSULE.DR PO SCH (20:22)
[2019-06-28] MEDS: GABAPENTIN 400 MG CAPSULE PO SCH (20:23)
[2019-06-29] MEDS: HYDROcodone/APAP 5/325 TABLET PO PRN ×2 (00:07→10:36)
[2019-06-29 02:30] VITALS: BP 135/82
[2019-06-29 07:56] VITALS: BP 132/85
[2019-06-29] MEDS: METOPROLOL SUCCINATE 50 MG TAB.ER.24H PO SCH (07:58)
[2019-06-29] MEDS: CALCIUM CARBONATE 500 MG TABLET PO SCH (07:58)
[2019-06-29] MEDS: CHOLECALCIFEROL 5,000u TAB PO SCH (07:58)
[2019-06-29 13:40] VITALS: BP 154/87
[2019-06-29] MEDS: ACETAMINOPHEN 325 MG TABLET PO PRN ×2 (15:21→21:24)
[2019-06-29] MEDS: HEPARIN 5,000 UNITS/ML, 1ML SQ SCH ×2 (15:21→21:26)
[2019-06-29] MEDS: VANCOMYCIN 2,100 MG in SODIUM CHLORIDE 0.9% 500 ML IV SCH ×2 (17:27→23:34)
[2019-06-29 20:06] VITALS: BP 136/81
[2019-06-29] MEDS: AMITRIPTYLINE 25 MG TABLET PO SCH (21:25)
[2019-06-29] MEDS: ARIPIPRAZOLE 10 MG TABLET PO SCH (21:25)
[2019-06-29] MEDS: DULOXETINE 30 MG CAPSULE.DR PO SCH (21:25)
[2019-06-29] MEDS: GABAPENTIN 400 MG CAPSULE PO SCH (21:25)
[2019-06-30 02:30] VITALS: BP 145/84
[2019-06-30] MEDS: ACETAMINOPHEN 325 MG TABLET PO PRN ×3 (03:10→20:42)
[2019-06-30] MEDS: HEPARIN 5,000 UNITS/ML, 1ML SQ SCH ×3 (05:31→20:46)
[2019-06-30 07:01] VITALS: BP 140/85
[2019-06-30] MEDS: CALCIUM CARBONATE 500 MG TABLET PO SCH (08:20)
[2019-06-30] MEDS: METOPROLOL SUCCINATE 50 MG TAB.ER.24H PO SCH (08:20)
[2019-06-30] MEDS: CHOLECALCIFEROL 5,000u TAB PO SCH (08:20)
[2019-06-30 11:16] LABS: BASOPHILS # (AUTO) 0.03 x10^3/uL (0-0.1); BASOPHILS % (AUTO) 1 % (0-1); EOSINOPHILS # (AUTO) 0.19 x10^3/uL (0-0.4); EOSINOPHILS % (AUTO) 3 % (1-7); LYMPHOCYTES # (AUTO) 1.11 x10^3/uL (1-3.4); LYMPHOCYTES % (AUTO) 16 % (22-44); MD NO; MEAN CORPUSCULAR HEMOGLOBIN 30.2 pg (27.0-34.8); MEAN CORPUSCULAR VOLUME 91.4 fL (80-100); MEAN PLATELET VOLUME 6.5 fL (7.4-10.4); MONOCYTES # (AUTO) 0.62 x10^3/uL (0.2-0.8); MONOCYTES % (AUTO) 9 % (2-9); NEUTROPHILS # (AUTO) 5.13 x10^3/uL (1.8-6.8); NEUTROPHILS % (AUTO) 72 % (42-75); PLATELET COUNT 343 x10^3/uL (130-400); RED BLOOD COUNT 4.07 x10^6/uL (3.82-5.3); RED CELL DISTRIBUTION WIDTH 13.6 % (9.6-15.2)
[2019-06-30 11:24] LABS: ANION GAP 5 mmol/L (5-15); CALCIUM 8.5 mg/dL (8.5-10.1); CHLORIDE 107 mmol/L (98-107); CREATININE 0.68 mg/dL (0.55-1.02)
[2019-06-30 14:11] VITALS: BP 142/89
[2019-06-30 18:50] LABS: CLOSTRIDIUM DIFFICILE ANTIGEN NEGATIVE; CLOSTRIDIUM DIFFICILE TOXIN NEGATIVE (Negative)
[2019-06-30 19:13] VITALS: BP_SYST 139; BP_SYST 161; BP_DIAS 80; BP_DIAS 81
[2019-06-30] MEDS: DULOXETINE 30 MG CAPSULE.DR PO SCH (20:42)
[2019-06-30] MEDS: GABAPENTIN 400 MG CAPSULE PO SCH (20:42)
[2019-06-30] MEDS: ARIPIPRAZOLE 10 MG TABLET PO SCH (20:42)
[2019-06-30] MEDS: AMITRIPTYLINE 25 MG TABLET PO SCH (20:42)
[2019-06-30] MEDS: VANCOMYCIN 2,100 MG in SODIUM CHLORIDE 0.9% 500 ML IV SCH (23:25)
[2019-07-01 01:29] VITALS: BP 153/98
[2019-07-01] MEDS: HEPARIN 5,000 UNITS/ML, 1ML SQ SCH ×2 (05:47→13:29)
[2019-07-01 06:23] LABS: CREATININE 0.63 mg/dL (0.55-1.02)
[2019-07-01 07:05] VITALS: BP 142/88
[2019-07-01] MEDS: METOPROLOL SUCCINATE 50 MG TAB.ER.24H PO SCH (07:57)
[2019-07-01] MEDS: CALCIUM CARBONATE 500 MG TABLET PO SCH (07:58)
[2019-07-01] MEDS: CHOLECALCIFEROL 5,000u TAB PO SCH (07:58)
[2019-07-01] MEDS: HYDROcodone/APAP 5/325 TABLET PO PRN (09:07)
[2019-07-01] MEDS ORDERED: CHOL500015 PO (13:51)
[2019-07-01] MEDS ORDERED: ACET325T26 PO (13:51)
[2019-07-01] MEDS ORDERED: VANC1PIG IV (13:51)
[2019-07-01] MEDS ORDERED: HYDR-3237 PO (13:51)
[2019-07-01 13:54] VITALS: BP 147/92
== END 2019-07-01 15:51 | DRG 854 ==
LOC: ED 13:38 → EDIP 14:34 → 4NW 15:20 → 4NE 06-26 22:31
PROVIDERS: ADMIT Family Medicine; ATTEND Family Medicine
PROC: 0H9KXZZ Drainage of Right Lower Leg Skin, External Approach (ICD-10-PCS; 2019-06-26)
PROC: 0YBM0ZZ Excision of Right Foot, Open Approach (ICD-10-PCS; principal; 2019-06-26 20:00)
PROC: 02HV33Z Insertion of Infusion Device into Superior Vena Cava, Percutaneous Approach (ICD-10-PCS; 2019-06-30)
PROC: B548ZZA Ultrasonography of Superior Vena Cava, Guidance (ICD-10-PCS; 2019-06-30)
PROC: B5181ZA Fluoroscopy of Superior Vena Cava using Low Osmolar Contrast, Guidance (ICD-10-PCS; 2019-06-30)
DX: A41.9 Sepsis, unspecified organism (principal); L02.611 Cutaneous abscess of right foot; L03.115 Cellulitis of right lower limb; Z68.42 Body mass index [BMI] 45.0-49.9, adult; B95.62 Methicillin resistant Staphylococcus aureus infection as the cause of diseases classified elsewhere; E66.01 Morbid (severe) obesity due to excess calories; G60.9 Hereditary and idiopathic neuropathy, unspecified; I10 Essential (primary) hypertension; E66.9 Obesity, unspecified; J45.909 Unspecified asthma, uncomplicated; K21.9 Gastro-esophageal reflux disease without esophagitis; Z80.1 Family history of malignant neoplasm of trachea, bronchus and lung; Z82.5 Family history of asthma and other chronic lower respiratory diseases; Z87.891 Personal history of nicotine dependence
CPT/HCPCS: 36415; 36573; 80048; 80053; 80202; 82040; 82565; 83036; 83605; 84145; 84520; 85025; 85651; 86140; 87040; 87070; 87075; 87077; 87186; 87205; 87324; 99285; G0378; J0295; J0696; J1100; J1170; J1644; J2250; J2405; J2704; J3010; J3370; A9575; C1751; J0330; J7040; J7120

== ENCOUNTER 2019-09-24 11:18 | Emergency (ER) | payer SELFPAY ==
[~2019-09-24] VITALS: Ht 152.4 cm; Wt 104.9 kg
[~2019-09-24 11:18] MED LIST changes: +ACET325T26 PO; +AMIT25TA PO; +ARIP10TA15 PO; +CALC500T11 PO; +CHOL500015 PO; +DULO60CA56 PO; +HYDR-3237 PO; +VANC1PIG IV
[2019-09-24] MEDS ORDERED: SODIUM CHLORIDE FLUSH 10ML SYR IVF ONE (12:00)
--- NOTE | 2019-09-24 12:02 | NUR ---
PT HERE WITH C/O POSS. TOE INFECTION. PT STATES SHE STEPPED ON A NAIL 2 WEEKS AGO AND NOW IT'S DRAINING "BAD SMELLING STUFF." PIV ESTABLISHED, LABS DRAWN AND SENT. PT IN GOWN AND ON MONITOR.
[2019-09-24 12:14] VITALS: BP 138/78
[2019-09-24 12:21] LABS: BASOPHILS # (AUTO) 0.02 x10^3/uL (0-0.1); BASOPHILS % (AUTO) 0 % (0-1); EOSINOPHILS # (AUTO) 0.09 x10^3/uL (0-0.4); EOSINOPHILS % (AUTO) 1 % (1-7); LYMPHOCYTES # (AUTO) 1.27 x10^3/uL (1-3.4); LYMPHOCYTES % (AUTO) 16 % (22-44); MD NO; MEAN CORPUSCULAR HEMOGLOBIN 29.6 pg (27.0-34.8); MEAN CORPUSCULAR HGB CONC 32.9 g/dL (32.4-35.8); MEAN PLATELET VOLUME 7.4 fL (7.4-10.4); MONOCYTES # (AUTO) 0.45 x10^3/uL (0.2-0.8); MONOCYTES % (AUTO) 6 % (2-9); NEUTROPHILS % (AUTO) 76 % (42-75); PLATELET COUNT 335 x10^3/uL (130-400); RED BLOOD COUNT 5.44 x10^6/uL (3.82-5.3); RED CELL DISTRIBUTION WIDTH 12.8 % (9.6-15.2)
[2019-09-24 12:30] LABS: ALANINE AMINOTRANSFERASE 37 U/L (12-78); ANION GAP 6 mmol/L (5-15); CALCIUM 8.9 mg/dL (8.5-10.1); CHLORIDE 104 mmol/L (98-107); CREATININE 0.76 mg/dL (0.55-1.02)
[2019-09-24 12:32] LABS: ALKALINE PHOSPHATASE 104 U/L (45-117); BILIRUBIN,TOTAL 0.7 mg/dL (0.2-1.0); TOTAL PROTEIN 8.6 g/dL (6.4-8.2)
[2019-09-24] MEDS ORDERED: SULFAMETH./TRIMETHOPRIM DS 800MG/160MG TABLET PO ONE (13:00)
[2019-09-24] MEDS ORDERED: SULFAMETH./TRIMETHOPRIM DS 800MG/160MG TABLET ONE (13:01)
--- NOTE | 2019-09-24 13:03 | NUR ---
PT MEDICATED PER ORDERS.
--- NOTE | 2019-09-24 13:16 | NUR ---
Patient/Caregiver given discharge instructions and they have confirmed that they understand the instructions. Patient ambulatory with steady gait.
== END 2019-09-24 13:18 | disposition home or self-care (01) ==
LOC: ED 13:12
DX: L03.032 Cellulitis of left toe (principal); I10 Essential (primary) hypertension; Z90.49 Acquired absence of other specified parts of digestive tract
CPT/HCPCS: 36415; 80053; 85025; 99284

== ENCOUNTER 2019-09-30 21:09 | Emergency (ER) | payer SELFPAY ==
[~2019-09-30] VITALS: Ht 152.4 cm; Wt 107.6 kg
[2019-09-30 21:11] VITALS: BP 178/85
--- NOTE | 2019-09-30 21:30 | NUR ---
C/O LIPS BURNING/STINGING DENIES DIFF BREATHING.
== END 2019-09-30 22:26 | disposition home or self-care (01) ==
LOC: ED 22:17
DX: T78.3XXA Angioneurotic edema, initial encounter (principal)
CPT/HCPCS: 99283; J7512

== ENCOUNTER 2019-11-03 08:53 | Emergency (ER) | payer OTHER ==
[~2019-11-03] VITALS: Ht 152.4 cm; Wt 105.8 kg
--- NOTE | 2019-11-03 09:31 | NUR ---
INDEPENDENT TRADER: PT AMBULATORY WITH STEADY GAIT TO ROOM AT THIS TIME. IDA
--- NOTE | 2019-11-03 10:04 | NUR ---
0930 LATE ENTRY TASK RN: PT AMBULATORY TO ROOM. CHANGED INTO GOWN. C/O "I HAVE BRONCHITIS" THROAT PAIN, COUGH X DAYS. PT RPTS FREQUENT BRONCHITIS AND STATES "THIS FEELS THE SAME" PT RA SAT 88% O2 L NC PLACED WITH EFFECT. BP AND SP02 MONITORING IN PLACE. PCXR COMPLETED AND RESULTS PENDING. CALL LIGHT W/I REACH.
--- NOTE | 2019-11-03 10:15 | NUR ---
TASK RN: PT AMB TO BATHROOM INSTRUCTED ON COLLECTION OF URINE SAMPLE. SAMPLE COLLECTED AND SENT TO LAB.
[2019-11-03] MEDS ORDERED: ACETAMINOPHEN 500 MG TABLET ONE (10:16)
--- NOTE | 2019-11-03 10:21 | NUR ---
TASK RN: DR AYALA AT BEDSIDE. PT ASSESSMENT POC REV. AND ORDERS REC'D.
--- NOTE | 2019-11-03 10:22 | NUR ---
TASK RN: PT MED NOTED FOR TEMP. FLU SWAB COLLECTED AND SENT TO LAB.
[2019-11-03] MEDS ORDERED: ACETAMINOPHEN 500 MG TABLET PO ONE (10:30)
--- NOTE | 2019-11-03 10:57 | NUR ---
TASK RN: SUSAN RPT TO [facility]
[2019-11-03 10:59] LABS: RAPID INFLUENZA A Negative (Negative); RAPID INFLUENZA B Negative (Negative)
[2019-11-03] MEDS ORDERED: methylPREDNISolone SOD SUCC 125 MG/2 ML IV ONE (11:00)
--- NOTE | 2019-11-03 11:14 | NUR ---
REPORT FROM MADAN BETANCUR.
[2019-11-03] MEDS ORDERED: methylPREDNISolone SOD SUCC 125 MG/2 ML ONE (11:18)
[2019-11-03 11:32] LABS: BASOPHILS % (AUTO) 0 % (0-1); EOSINOPHILS % (AUTO) 0 % (1-7); LYMPHOCYTES # (AUTO) 0.56 x10^3/uL (1-3.4); LYMPHOCYTES % (AUTO) 6 % (22-44); MD NO; MEAN CORPUSCULAR HGB CONC 33.3 g/dL (32.4-35.8); MEAN CORPUSCULAR VOLUME 90.1 fL (80-100); MEAN PLATELET VOLUME 7.6 fL (7.4-10.4); MONOCYTES # (AUTO) 0.74 x10^3/uL (0.2-0.8); MONOCYTES % (AUTO) 8 % (2-9); NEUTROPHILS # (AUTO) 8.18 x10^3/uL (1.8-6.8); NEUTROPHILS % (AUTO) 86 % (42-75); PLATELET COUNT 287 x10^3/uL (130-400); RED BLOOD COUNT 4.64 x10^6/uL (3.82-5.3); RED CELL DISTRIBUTION WIDTH 14.1 % (9.6-15.2)
[2019-11-03 11:40] LABS: ALANINE AMINOTRANSFERASE 18 U/L (12-78); ALBUMIN 3.5 g/dL (3.4-5.0); ANION GAP 6 mmol/L (5-15); CALCIUM 8.8 mg/dL (8.5-10.1); CHLORIDE 101 mmol/L (98-107); CREATININE 0.85 mg/dL (0.55-1.02)
[2019-11-03 11:45] LABS: ALKALINE PHOSPHATASE 83 U/L (45-117); BILIRUBIN,TOTAL 0.5 mg/dL (0.2-1.0); TOTAL PROTEIN 7.3 g/dL (6.4-8.2); TROPONIN I < 0.015 ng/mL (0.000-0.045)
--- NOTE | 2019-11-03 12:05 | NUR ---
UA PENDING. AFEBRILE.
[2019-11-03 12:20] LABS: CULTURE INDICATED? YES; MICROSCOPIC INDICATED
--- NOTE | 2019-11-03 14:06 | NUR ---
called lab re: urine. sts will do it. as
[2019-11-03 15:03] VITALS: BP 147/72
== END 2019-11-03 15:05 | disposition home or self-care (01) ==
LOC: ED 14:53
DX: B34.9 Viral infection, unspecified (principal); I10 Essential (primary) hypertension; K21.9 Gastro-esophageal reflux disease without esophagitis; J45.909 Unspecified asthma, uncomplicated
CPT/HCPCS: 36415; 71046; 80053; 81001; 83605; 83880; 84484; 85025; 87040; 87086; 87400; 93005; 96374; 99285; J2930